=== PATIENT | female | born 1990 | race Caucasian/White ===

== ENCOUNTER 2016-07-18 12:46 | Emergency (ER) | payer OTHER ==
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
--- NOTE | 2016-07-18 15:15 | ED ORDER SUMMARY ---
..... Patient: YOU DON OrderSheet [facility] VisitID: [id number] [address] [place] [address] 26y, F Registration Date/Time: 07/18/2016 ORDER SHEET Weight: 61.2 kg (stated) Allergies: Codeine, Hydrocodone, Morphine and Related GENERAL ORDERS: UA-Culture if indicated Urgent (14:57 07/18/2016 EInderbitbang R.N. verbal order read back to HBivens A.R.N.P.) (14:58 TBergley) Urine Urgent (14:57 07/18/2016 EInderbitzen R.N. verbal order read back to HBivens A.R.N.P.) (14:58 TBergley) MEDICATION ORDERS: Zofran ODT PO 4 mg (NOW) (15:14 07/18/2016 HBivens A.R.N.P.) (15:16 EInderbitzen R.N.) IV FLUIDS: ORDER SHEET NOTES: [Electronically signed by Kamla Tucker R.N. (15:47 07/18/2016)] [Electronically signed by Tatiana Guzman A.R.N.P. (19:18 07/18/2016)] [Electronically locked/signed by Kamla Tucker R.N. (15:47 07/18/2016)]
--- NOTE | 2016-07-18 15:15 | ED NURSING NOTES ---
Clinical Report - Nurses [facility] [address] [place] [address] 07/18/2016 12:47 Patient: YOU DON TRIAGE Triage time 1425. Acuity: LEVEL 3. Chief Complaint: (Pt has had anxiety and depression since boyfriend of medical issue 75 days ago. Pt unable to eat, and vomits will.). --14:33 Carla Sterling R.N. 14:22 07/18/16. BP: 111/70. HR: 100. RR: 16. O2 saturation: 100%. Temp: 98.2 F. Pain level now: 07/24. Additional comments: headache. --14:33 Carla Sterling R.N. Weight: 61.2 kg stated. Height/Length: 66 inches Per Patient. BMI: 21.8. --14:30 Carla Sterling R.N. Medications None. --14:31 Carla Sterling R.N. Allergies Codeine.(rash) Hydrocodone.(rash) Morphine and Related. (throat swelling ) --14:31 Carla Sterling R.N. History Arrived by private vehicle. Historian: patient. Accompanied by family. No primary care physician. Reports muscle aches. ( cant sleep, and has lost 39# since boyfriend ). PAST MEDICAL HX: Last normal menstrual period- 2 weeks. SOCIAL HX: Heavy tobacco smoker (cigarette)- less than 1 pack per day. No alcohol use or drug use. --14:33 Carla Sterling R.N. PROBLEMS: Gastritis. Diarrhea. Vomiting. Bronchitis. Ureterolithiasis. Abdominal Pain. Chronic Back Pain. Kidney Infection. Pyelonephritis. Leukocytosis. UTI - Urinary Tract Infection. Cervical Strain. --14:30 Carla Sterling R.N. ADDITIONAL SURGERIES: None. --14:30 Carla Sterling R.N. Interventions ID band on patient. To treatment room. --14:33 Carla Sterling R.N. NURSING PROGRESS NOTES 14:56 07/18/16. The initial plan of care for this patient includes an assessment with efforts to address the patient's anxiety. This plan of care was discussed with the patient. Patient gowned. Reassurance given. Two patient identifiers checked. Call light placed in reach. Side rails up x 1. Bed placed in lowest position. Brakes of bed on. Patient ready for evaluation. --14:56 Kamla Tucker R.N. 14:56 07/18/16. Patient ID band checked for patient name and birthdate: patient confirmed. Instructions provided to collect clean catch urine and patient verbalized understanding. Clean catch urine collected with return of yellow-colored urine; sample sent to lab for urinalysis and HCG. Specimen labeled in the presence of the patient. --14:56 Kamla Tucker R.N. 15:16 07/18/2016 Zofran ODT (Ondansetron) PO Oral Disintegrating Tablets 4 mg given. Allergies verified and confirmed 5 rights. --15:16 Kamla Tucker R.N. DISPOSITION / DISCHARGE 15:45 07/18/16. Departure time: 15:45 Jul 18 2016. Condition at departure: improved and stable. No learning barriers present. Reviewed medication(s) side effects, precautions, dosing and course information. Prescription(s) given to the patient. Patient verbalized understanding. Written instructions provided in Turkish. The patient was discharged home and accompanied by family. She left the Emergency Department ambulatory and via private vehicle. Family member driving. --15:47 Kamla Tucker R.N. 15:45 07/18/16. Pain level now 0/10. --15:47 Kamla Tucker R.N. 15:21 07/18/16. BP: 112/66. HR: 70. RR: 16. O2 saturation: 100%. Temp: 98.4 F. --15:47 Kamla Tucker R.N. Locked/Released at 07/18/2016 15:47 by Kamla Tucker R.N.
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
--- NOTE | 2016-07-18 15:15 | ED ORDER SUMMARY ---
..... Patient: YOU DON OrderSheet [facility] VisitID: [id number] [address] [place] [address] 26y, F Registration Date/Time: 07/18/2016 ORDER SHEET Weight: 61.2 kg (stated) Allergies: Codeine, Hydrocodone, Morphine and Related GENERAL ORDERS: UA-Culture if indicated Urgent (14:57 07/18/2016 EInderbitbang R.N. verbal order read back to HBivens A.R.N.P.) (14:58 TBergley) Urine Urgent (14:57 07/18/2016 EInderbitzen R.N. verbal order read back to HBivens A.R.N.P.) (14:58 TBergley) MEDICATION ORDERS: Zofran ODT PO 4 mg (NOW) (15:14 07/18/2016 HBivens A.R.N.P.) (15:16 EInderbitzen R.N.) IV FLUIDS: ORDER SHEET NOTES: [Electronically signed by Kamla Tucker R.N. (15:47 07/18/2016)] [Electronically signed by Tatiana Guzman A.R.N.P. (19:18 07/18/2016)] [Electronically locked/signed by Kamla Tucker R.N. (15:47 07/18/2016)]
--- NOTE | 2016-07-18 19:19 | ED MAR SUMMARY ---
..... Medication Administration Record [facility] [address] [place] [address] Patient: YOU DON Visit ID: [id number] 26y, F Weight: 61.2 kg Height/Length: 66 in BMI: 21.8 ALLERGIES: Codeine, Hydrocodone, Morphine and Related Given 15:16 07/18/2016 Kamla Tucker R.N. Medication Administered: ZOFRAN ODT [PO] (ONDANSETRON), Dose: 4 mg Oral Disintegrating Tablets PO. Medication Ordered: Zofran ODT PO 4 mg (NOW).
--- NOTE | 2016-07-18 19:19 | ED DISCHARGE INSTRUCTIONS ---
Patient: YOU DON General Instructions [facility] VisitID: [id number] [place] [address] 26y, F Registration Date/Time: 07/18/2016 Grief reaction with depressed mood, anxiety and mental fatigue. Psychophysiologic and adjustment related insomnia. INSTRUCTIONS Do not work today, tomorrow. Warnings: GENERAL WARNINGS: Return or contact your physician immediately if your condition worsens or changes unexpectedly, if not improving as expected, or if other problems arise. Specifically return if problem worsens. Prescription Medications: Zofran 4 mg: Take 1 orally every six hours as needed for nausea/vomiting. Dispense ten (10). No refills. Substitution is permissible. Xanax 0.25 mg: Take 1 orally every 8 hours as needed for anxiety. Dispense fifteen (15). No refills. Substitution is permissible. Follow-up: Follow up with your doctor in about one week as needed. Call for an appointment. Summary of care provided to patient. Understanding of the discharge instructions verbalized by patient. ADDITIONAL INFORMATION Grief Reaction Grief is the feeling that we all have when we lose someone that has been important in our life. Grief can last from months to years. The amount of time depends on different factors. These include how close the person was to you, and how much support you have through the grief process. Normal physical reactions to grief include loss of appetite or overeating, changes in weight, trouble getting to sleep or staying asleep, hair loss, stomach upset, cramping, diarrhea. Normal emotional reactions to grief include sadness, anxiety, feeling depressed or helpless, and difficulty concentrating. There may be a tendency to want to overwork or become so busy that you distract yourself from the intense pain you feel. Or you maylose all interest in work. Home Care: Allow yourself to feel the pain of your loss. For some, this can be a manriquez part of healing grief. Talk about your pain with others who understand. Share good memories that involve the person you lost. Take time for yourself. Make it a point to do things that you enjoy (gardening, walking in nature, going to a movie, etc.). Take care of your physical body. Eat a balanced diet (low in saturated fat and high in fruits and vegetables) and establish an exercise plan at least 3 times a week for 30 minutes. Even mild-moderate exercise (like brisk walking) can make you feel better. Get plenty of sleep. Avoid the use of alcohol and drugs to cover your emotional pain. This only slows down the emotional healing process. Do not isolate yourself from others. Have daily contact with family or friends. Talk about your loss to those closest to you. For additional support, meet with your seat covers trimmer/painter decorator/rabbi, a counselor or therapist, or your own doctor. Consider joining a grief support group. Ask your doctor or our staff for information on how to find one in your area. If you have been prescribed a medicine to help with your symptoms, take it only as directed. Do not use it with alcohol. Follow Up with your doctor or as advised by our staff if you feel that your grief reaction is not responding to self-help measures. You may benefit from working with a trained counselor or therapist. Get Prompt Medical Attention if any of the following occur: Worsening symptoms Unable to eat or sleep for three days in a row Feeling extreme depression, fear, anxiety, or anger toward yourself or others Feeling out of control Feeling that you may try to harm yourself Insomnia Insomnia refers to a difficulty going to sleep or staying asleep, or both. Insomnia has many causes, including anxiety, stress, depression, chronic pain, sleeping cycles out of balance due to working night shifts or excess napping during the day, and a condition called sleep apnea. Insomnia can be a side effect from stimulant medicines such as decongestants, asthma inhalers and pills, diet pills, and illegal drugs such as speed, crank, crack, and PCP. Home Care: Review your medicines with your doctor or pharmacist to find out if they can cause insomnia. Caffeine, smoking and alcohol also affect sleep. Limit your daily use and do not use these before bedtime. Alcohol may make you sleepy at first, but as its effects wear off, you may awaken a few hours later and have trouble returning to sleep. Do not exercise, eat or drink large amounts of liquid within 2 hours of your bedtime. Improve your sleep habits. Have a fixed bed and wake-up time. Try to keep noise, light and heat in your bedroom at a comfortable level. Try using earplugs or eyeshades if needed. Avoid watching TV in bed. If you do not fall asleep within 30 minutes, try to relax by reading or listening to soft music. Limit daytime napping to one 30 minute period, early in the day. Get regular exercise. Find other ways to lessen your stress level. If a medicine was prescribed to help reset your sleep patterns, take it as directed. Sleeping pills are intended for short-term use, only. If taken for too long, the effect wears off while the risk of physical addiction and psychological dependence increases. Follow-Up with your doctor or as directed by our staff if you feel that your insomnia is not responding to the above measures. Get Prompt Medical Attention if any of the following occur: Extreme restlessness or irritability Confusion or hallucinations (seeing or hearing things that are not there) Anxiety, depression Several days without sleeping Ondansetron Oral disintegrating tablet What is this medicine? ONDANSETRON (on MAC se vilma) is used to treat nausea and vomiting caused by chemotherapy. It is also used to prevent or treat nausea and vomiting after surgery. How should I use this medicine? These tablets are made to dissolve in the mouth. Do not try to push the tablet through the foil backing. With dry hands, peel away the foil backing and gently remove the tablet. Place the tablet in the mouth and allow it to dissolve, then swallow. While you may take these tablets with water, it is not necessary to do so. Talk to your saw straightener regarding the use of this medicine in children. Special care may be needed. What side effects may I notice from receiving this medicine? Side effects that you should report to your doctor or health healthcare administrator as soon as possible: allergic reactions like skin rash, itching or hives, swelling of the face, lips, or tongue breathing problems dizziness fast or irregular heartbeat feeling faint or lightheaded, falls fever and chills swelling of the hands and feet tightness in the chest Side effects that usually do not require medical attention (report to your doctor or health healthcare administrator if they continue or are bothersome): constipation or diarrhea headache What may interact with this medicine? Do not take this medicine with any of the following medications: -apomorphine -cisapride -dofetilide -dronedarone -pimozide -thioridazine -ziprasidone This medicine may also interact with the following medications: -carbamazepine -phenytoin -rifampicin -tramadol -other medicines that prolong the QT interval (cause an abnormal heart rhythm) What if I miss a dose? If you miss a dose, take it as soon as you can. If it is almost time for your next dose, take only that dose. Do not take double or extra doses. Where should I keep my medicine? Keep out of the reach of children. Store between 2 and 30 degrees C (36 and 86 degrees F). Throw away any unused medicine after the expiration date. What should I tell my health care provider before I take this medicine? They need to know if you have any of these conditions: heart disease history of irregular heartbeat liver disease low levels of magnesium or potassium in the blood an unusual or allergic reaction to ondansetron, granisetron, other medicines, foods, dyes, or preservatives or trying to get breast-feeding What should I watch for while using this medicine? Check with your doctor or health healthcare administrator as soon as you can if you have any sign of an allergic reaction. Alprazolam Oral tablet What is this medicine? ALPRAZOLAM (al PRAY nic chow) is a benzodiazepine. It is used to treat anxiety and panic attacks. How should I use this medicine? Take this medicine by mouth with a glass of water. Follow the directions on the prescription label. Take your medicine at regular intervals. Do not take it more often than directed. If you have been taking this medicine regularly for some time, do not suddenly stop taking it. You must gradually reduce the dose or you may get severe side effects. Ask your doctor or health healthcare administrator for advice. Even after you stop taking this medicine it can still affect your body for several days. Talk to your saw straightener regarding the use of this medicine in children. Special care may be needed. What side effects may I notice from receiving this medicine? Side effects that you should report to your doctor or health healthcare administrator as soon as possible: allergic reactions like skin rash, itching or hives, swelling of the face, lips, or tongue confusion, forgetfulness depression difficulty sleeping difficulty speaking feeling faint or lightheaded, falls mood changes, excitability or aggressive behavior muscle cramps trouble passing urine or change in the amount of urine unusually weak or tired Side effects that usually do not require medical attention (report to your doctor or health healthcare administrator if they continue or are bothersome): change in sex drive or performance changes in appetite What may interact with this medicine? Do not take this medicine with any of the following medications: certain medicines for HIV infection or AIDS ketoconazole itraconazole This medicine may also interact with the following medications: control pills certain macrolide antibiotics like clarithromycin, erythromycin, troleandomycin cimetidine cyclosporine ergotamine grapefruit juice herbal or dietary supplements like kava kava, melatonin, dehydroepiandrosterone, DHEA, Chema's Wort or valerian imatinib, STI-571 isoniazid levodopa medicines for depression, anxiety, or psychotic disturbances prescription pain medicines rifampin, rifapentine, or rifabutin some medicines for blood pressure or heart problems some medicines for seizures like carbamazepine, oxcarbazepine, phenobarbital, phenytoin, primidone What if I miss a dose? If you miss a dose, take it as soon as you can. If it is almost time for your next dose, take only that dose. Do not take double or extra doses. Where should I keep my medicine? Keep out of the reach of children. This medicine can be abused. Keep your medicine in a safe place to protect it from theft. Do not share this medicine with anyone. Selling or giving away this medicine is dangerous and against the law. Store at room temperature between 20 and 25 degrees C (68 and 77 degrees F). Throw away any unused medicine after the expiration date. What should I tell my health care provider before I take this medicine? They need to know if you have any of these conditions: an alcohol or drug abuse problem bipolar disorder, depression, psychosis or other mental health conditions glaucoma kidney or liver disease lung or breathing disease myasthenia gravis Parkinson's disease porphyria seizures or a history of seizures suicidal thoughts an unusual or allergic reaction to alprazolam, other benzodiazepines, foods, dyes, or preservatives or trying to get breast-feeding What should I watch for while using this medicine? Visit your doctor or health healthcare administrator for regular checks on your progress. Your body can become dependent on this medicine. Ask your doctor or health healthcare administrator if you still need to take it. You may get drowsy or dizzy. Do not drive, use machinery, or do anything that needs mental alertness until you know how this medicine affects you. To reduce the risk of dizzy and fainting spells, do not stand or sit up quickly, especially if you are an older patient. Alcohol may increase dizziness and drowsiness. Avoid alcoholic drinks. Do not treat yourself for coughs, colds or allergies without asking your doctor or health healthcare administrator for advice. Some ingredients can increase possible side effects. You have been given the following additional information: Grief Reaction Insomnia Ondansetron Oral disintegrating tablet Alprazolam Oral tablet Do not work today, tomorrow. (Electronically signed by Tatiana Guzman A.R.N.P. 07/18/2016 19:18)
--- NOTE | 2016-07-18 19:19 | ED MED RECONCILIATION SUMMARY ---
Patient: YOU DON Medication Reconciliation Report [facility] VisitID: [id number] [address] [place] [address] 26y, F Registration Date/Time: 07/18/2016 Weight: 61.2 kg Height/Length: 66 in. BMI: 21.8 ALLERGIES: Codeine, Hydrocodone, Morphine and Related The patient's Home Medications are listed below: NONE. The source(s) of the original Home Medication information: Not obtained. The following Medications were given to the patient in the Emergency Department: Zofran ODT [PO] PO 4 mg, administered: 07/18/2016 3:16:00 PM The following Medications were prescribed to the patient: Zofran 4 mg: Take 1 orally every six hours as needed for nausea/vomiting. Dispense ten (10). No refills. Substitution is permissible. -- Tatiana Guzman, A.R.N.P. Xanax 0.25 mg: Take 1 orally every 8 hours as needed for anxiety. Dispense fifteen (15). No refills. Substitution is permissible. -- Tatiana Guzman, A.R.N.P.
--- NOTE | 2016-07-18 19:19 | ED MED RECONCILIATION SUMMARY ---
Patient: YOU DON Medication Reconciliation Report [facility] VisitID: [id number] [address] [place] [address] 26y, F Registration Date/Time: 07/18/2016 Weight: 61.2 kg Height/Length: 66 in. BMI: 21.8 ALLERGIES: Codeine, Hydrocodone, Morphine and Related The patient's Home Medications are listed below: NONE. The source(s) of the original Home Medication information: Not obtained. The following Medications were given to the patient in the Emergency Department: Zofran ODT [PO] PO 4 mg, administered: 07/18/2016 3:16:00 PM The following Medications were prescribed to the patient: Zofran 4 mg: Take 1 orally every six hours as needed for nausea/vomiting. Dispense ten (10). No refills. Substitution is permissible. -- Tatiana Guzman, A.R.N.P. Xanax 0.25 mg: Take 1 orally every 8 hours as needed for anxiety. Dispense fifteen (15). No refills. Substitution is permissible. -- Tatiana Guzman, A.R.N.P.
--- NOTE | 2016-07-18 19:19 | ED DISCHARGE INSTRUCTIONS ---
Patient: YOU DON General Instructions [facility] VisitID: [id number] [place] [address] 26y, F Registration Date/Time: 07/18/2016 Grief reaction with depressed mood, anxiety and mental fatigue. Psychophysiologic and adjustment related insomnia. INSTRUCTIONS Do not work today, tomorrow. Warnings: GENERAL WARNINGS: Return or contact your physician immediately if your condition worsens or changes unexpectedly, if not improving as expected, or if other problems arise. Specifically return if problem worsens. Prescription Medications: Zofran 4 mg: Take 1 orally every six hours as needed for nausea/vomiting. Dispense ten (10). No refills. Substitution is permissible. Xanax 0.25 mg: Take 1 orally every 8 hours as needed for anxiety. Dispense fifteen (15). No refills. Substitution is permissible. Follow-up: Follow up with your doctor in about one week as needed. Call for an appointment. Summary of care provided to patient. Understanding of the discharge instructions verbalized by patient. ADDITIONAL INFORMATION Grief Reaction Grief is the feeling that we all have when we lose someone that has been important in our life. Grief can last from months to years. The amount of time depends on different factors. These include how close the person was to you, and how much support you have through the grief process. Normal physical reactions to grief include loss of appetite or overeating, changes in weight, trouble getting to sleep or staying asleep, hair loss, stomach upset, cramping, diarrhea. Normal emotional reactions to grief include sadness, anxiety, feeling depressed or helpless, and difficulty concentrating. There may be a tendency to want to overwork or become so busy that you distract yourself from the intense pain you feel. Or you maylose all interest in work. Home Care: Allow yourself to feel the pain of your loss. For some, this can be a manriquez part of healing grief. Talk about your pain with others who understand. Share good memories that involve the person you lost. Take time for yourself. Make it a point to do things that you enjoy (gardening, walking in nature, going to a movie, etc.). Take care of your physical body. Eat a balanced diet (low in saturated fat and high in fruits and vegetables) and establish an exercise plan at least 3 times a week for 30 minutes. Even mild-moderate exercise (like brisk walking) can make you feel better. Get plenty of sleep. Avoid the use of alcohol and drugs to cover your emotional pain. This only slows down the emotional healing process. Do not isolate yourself from others. Have daily contact with family or friends. Talk about your loss to those closest to you. For additional support, meet with your slitter cut off operator/pool coordinator/rabbi, a counselor or therapist, or your own doctor. Consider joining a grief support group. Ask your doctor or our staff for information on how to find one in your area. If you have been prescribed a medicine to help with your symptoms, take it only as directed. Do not use it with alcohol. Follow Up with your doctor or as advised by our staff if you feel that your grief reaction is not responding to self-help measures. You may benefit from working with a trained counselor or therapist. Get Prompt Medical Attention if any of the following occur: Worsening symptoms Unable to eat or sleep for three days in a row Feeling extreme depression, fear, anxiety, or anger toward yourself or others Feeling out of control Feeling that you may try to harm yourself Insomnia Insomnia refers to a difficulty going to sleep or staying asleep, or both. Insomnia has many causes, including anxiety, stress, depression, chronic pain, sleeping cycles out of balance due to working night shifts or excess napping during the day, and a condition called sleep apnea. Insomnia can be a side effect from stimulant medicines such as decongestants, asthma inhalers and pills, diet pills, and illegal drugs such as speed, crank, crack, and PCP. Home Care: Review your medicines with your doctor or pharmacist to find out if they can cause insomnia. Caffeine, smoking and alcohol also affect sleep. Limit your daily use and do not use these before bedtime. Alcohol may make you sleepy at first, but as its effects wear off, you may awaken a few hours later and have trouble returning to sleep. Do not exercise, eat or drink large amounts of liquid within 2 hours of your bedtime. Improve your sleep habits. Have a fixed bed and wake-up time. Try to keep noise, light and heat in your bedroom at a comfortable level. Try using earplugs or eyeshades if needed. Avoid watching TV in bed. If you do not fall asleep within 30 minutes, try to relax by reading or listening to soft music. Limit daytime napping to one 30 minute period, early in the day. Get regular exercise. Find other ways to lessen your stress level. If a medicine was prescribed to help reset your sleep patterns, take it as directed. Sleeping pills are intended for short-term use, only. If taken for too long, the effect wears off while the risk of physical addiction and psychological dependence increases. Follow-Up with your doctor or as directed by our staff if you feel that your insomnia is not responding to the above measures. Get Prompt Medical Attention if any of the following occur: Extreme restlessness or irritability Confusion or hallucinations (seeing or hearing things that are not there) Anxiety, depression Several days without sleeping Ondansetron Oral disintegrating tablet What is this medicine? ONDANSETRON (on MAC se vilma) is used to treat nausea and vomiting caused by chemotherapy. It is also used to prevent or treat nausea and vomiting after surgery. How should I use this medicine? These tablets are made to dissolve in the mouth. Do not try to push the tablet through the foil backing. With dry hands, peel away the foil backing and gently remove the tablet. Place the tablet in the mouth and allow it to dissolve, then swallow. While you may take these tablets with water, it is not necessary to do so. Talk to your garnett mechanic regarding the use of this medicine in children. Special care may be needed. What side effects may I notice from receiving this medicine? Side effects that you should report to your doctor or health critical care nurse practitioner as soon as possible: allergic reactions like skin rash, itching or hives, swelling of the face, lips, or tongue breathing problems dizziness fast or irregular heartbeat feeling faint or lightheaded, falls fever and chills swelling of the hands and feet tightness in the chest Side effects that usually do not require medical attention (report to your doctor or health critical care nurse practitioner if they continue or are bothersome): constipation or diarrhea headache What may interact with this medicine? Do not take this medicine with any of the following medications: -apomorphine -cisapride -dofetilide -dronedarone -pimozide -thioridazine -ziprasidone This medicine may also interact with the following medications: -carbamazepine -phenytoin -rifampicin -tramadol -other medicines that prolong the QT interval (cause an abnormal heart rhythm) What if I miss a dose? If you miss a dose, take it as soon as you can. If it is almost time for your next dose, take only that dose. Do not take double or extra doses. Where should I keep my medicine? Keep out of the reach of children. Store between 2 and 30 degrees C (36 and 86 degrees F). Throw away any unused medicine after the expiration date. What should I tell my health care provider before I take this medicine? They need to know if you have any of these conditions: heart disease history of irregular heartbeat liver disease low levels of magnesium or potassium in the blood an unusual or allergic reaction to ondansetron, granisetron, other medicines, foods, dyes, or preservatives or trying to get breast-feeding What should I watch for while using this medicine? Check with your doctor or health critical care nurse practitioner as soon as you can if you have any sign of an allergic reaction. Alprazolam Oral tablet What is this medicine? ALPRAZOLAM (al PRAY nic chow) is a benzodiazepine. It is used to treat anxiety and panic attacks. How should I use this medicine? Take this medicine by mouth with a glass of water. Follow the directions on the prescription label. Take your medicine at regular intervals. Do not take it more often than directed. If you have been taking this medicine regularly for some time, do not suddenly stop taking it. You must gradually reduce the dose or you may get severe side effects. Ask your doctor or health critical care nurse practitioner for advice. Even after you stop taking this medicine it can still affect your body for several days. Talk to your garnett mechanic regarding the use of this medicine in children. Special care may be needed. What side effects may I notice from receiving this medicine? Side effects that you should report to your doctor or health critical care nurse practitioner as soon as possible: allergic reactions like skin rash, itching or hives, swelling of the face, lips, or tongue confusion, forgetfulness depression difficulty sleeping difficulty speaking feeling faint or lightheaded, falls mood changes, excitability or aggressive behavior muscle cramps trouble passing urine or change in the amount of urine unusually weak or tired Side effects that usually do not require medical attention (report to your doctor or health critical care nurse practitioner if they continue or are bothersome): change in sex drive or performance changes in appetite What may interact with this medicine? Do not take this medicine with any of the following medications: certain medicines for HIV infection or AIDS ketoconazole itraconazole This medicine may also interact with the following medications: control pills certain macrolide antibiotics like clarithromycin, erythromycin, troleandomycin cimetidine cyclosporine ergotamine grapefruit juice herbal or dietary supplements like kava kava, melatonin, dehydroepiandrosterone, DHEA, Chema's Wort or valerian imatinib, STI-[id number] isoniazid levodopa medicines for depression, anxiety, or psychotic disturbances prescription pain medicines rifampin, rifapentine, or rifabutin some medicines for blood pressure or heart problems some medicines for seizures like carbamazepine, oxcarbazepine, phenobarbital, phenytoin, primidone What if I miss a dose? If you miss a dose, take it as soon as you can. If it is almost time for your next dose, take only that dose. Do not take double or extra doses. Where should I keep my medicine? Keep out of the reach of children. This medicine can be abused. Keep your medicine in a safe place to protect it from theft. Do not share this medicine with anyone. Selling or giving away this medicine is dangerous and against the law. Store at room temperature between 20 and 25 degrees C (68 and 77 degrees F). Throw away any unused medicine after the expiration date. What should I tell my health care provider before I take this medicine? They need to know if you have any of these conditions: an alcohol or drug abuse problem bipolar disorder, depression, psychosis or other mental health conditions glaucoma kidney or liver disease lung or breathing disease myasthenia gravis Parkinson's disease porphyria seizures or a history of seizures suicidal thoughts an unusual or allergic reaction to alprazolam, other benzodiazepines, foods, dyes, or preservatives or trying to get breast-feeding What should I watch for while using this medicine? Visit your doctor or health critical care nurse practitioner for regular checks on your progress. Your body can become dependent on this medicine. Ask your doctor or health critical care nurse practitioner if you still need to take it. You may get drowsy or dizzy. Do not drive, use machinery, or do anything that needs mental alertness until you know how this medicine affects you. To reduce the risk of dizzy and fainting spells, do not stand or sit up quickly, especially if you are an older patient. Alcohol may increase dizziness and drowsiness. Avoid alcoholic drinks. Do not treat yourself for coughs, colds or allergies without asking your doctor or health critical care nurse practitioner for advice. Some ingredients can increase possible side effects. You have been given the following additional information: Grief Reaction Insomnia Ondansetron Oral disintegrating tablet Alprazolam Oral tablet Do not work today, tomorrow. (Electronically signed by Tatiana Guzman A.R.N.P. 07/18/2016 19:18)
--- NOTE | 2016-07-18 19:19 | ED MAR SUMMARY ---
..... Medication Administration Record [facility] [address] [place] [address] Patient: YOU DON Visit ID: [id number] 26y, F Weight: 61.2 kg Height/Length: 66 in BMI: 21.8 ALLERGIES: Codeine, Hydrocodone, Morphine and Related Given 15:16 07/18/2016 Kamla uTcker R.N. Medication Administered: ZOFRAN ODT [PO] (ONDANSETRON), Dose: 4 mg Oral Disintegrating Tablets PO. Medication Ordered: Zofran ODT PO 4 mg (NOW).
== END 2016-07-18 15:45 | disposition home or self-care (01) ==
LOC: ED SRH 12:46
DX: F43.21 Adjustment disorder with depressed mood (principal); F41.9 Anxiety disorder, unspecified; F51.04 Psychophysiologic insomnia; F17.210 Nicotine dependence, cigarettes, uncomplicated; Z88.5 Allergy status to narcotic agent
CPT/HCPCS: 90004; 90469; 93070